=== PATIENT | male | born 1955 | race Caucasian/White ===

== ENCOUNTER 2017-02-24 00:24 | Observation (INO) ==
[2017-02-24] MEDS ORDERED: NITROGLYCERIN SL 0.4 MG TABLET SL STA (02:50)
[2017-02-24] MEDS ORDERED: ASPIRIN 325 MG TABLET PO STA (02:50)
[2017-02-24] MEDS ORDERED: ONDANSETRON 4 MG/2 ML VIAL IV STA (02:50)
[2017-02-24] MEDS ORDERED: MORPHINE 2 MG/1 ML SYRINGE IV STA (02:50)
--- NOTE | 2017-02-24 02:51 | Emergency Department Note ---
Marcelina Ashby Rolonda, am scribing for, and in the presence of, Jamilah Wade DO 02: 51. IMauro Debra, DO, personally performed the services described in this documentation, ascribed by Vonnie Hewitt in my presence, and it is both accurate and complete . Arrival - Arrival Chief Complaint: Chest Pain Stated Complaint: chest pain ED Nursing Triage Note: PATIENT C/O MIDSTERNAL CP PAIN THAT RADIATES TO LEFT SHOULDER, HEAVY IN NATURE, DENIES SOB OR N/V. HX PERICARDITIS Mode of Arrival: Wheelchair Limitations: No Limitations Source: Patient, Old Records Reviewed, RN Notes Reviewed - History of Present Illness HPI Narrative: Pt is a 61 y/o male who presents to the ED with c/o chest pain with an onset at 8pm. Pt denies any PMHx of Cardiovascular problems. Pt states that he was home watching tv when he began to feel "heaviness and pressure" in his chest. Pt states that the severity of the pain was worse but has declined to 4/10. He denies diaphoresis, N/V and is f/u by Dr. Villafuerte. No other complaint/pain in ED. Onset (ago): hour(s) Consistency: constant Severity: moderate Severity scale (1-10): 4 Quality: other (heaviness; pressure) Allergies/Adverse Reactions: Allergies Allergy/AdvReac Type Severity Reaction Status Date / Time No Known Allergies Allergy Verified 02/24/17 00:31 Home Medications: Home Medications Medication Instructions Recorded Confirmed Type No Known Home Medications [No 02/24/17 02/24/17 History Known Home Medications] Review of System - Review of System 12 point system: reviewed and no additional remarkable complaints except as stated - Review of System Constitutional: Absent: chills, fever, weakness Eyes: Absent: discharge, redness Head/Ears/Nose/Throat: Absent: earache, epistaxis Respiratory: Absent: cough Cardiovascular: Present: chest pain. Absent: palpitations, dyspnea on exertion Gastrointestinal: Absent: abdominal pain, nausea, vomiting, diarrhea Genitourinary male: Absent: urgency Musculoskeletal: Absent: arm pain, back pain, leg pain, neck pain Skin: Absent: rash Neurological: Absent: headache, weakness Medical,Surgical,& Family Hx - Social History Smoking Status: Never smoker Frequency of Alcohol Use: None Type of Drug Use: None Exam Vital Signs: Vital Signs Temperature 97.8 F 02/24/17 00:24 Pulse Rate 57 L 02/24/17 00:24 Respiratory Rate 20 02/24/17 00:24 Blood Pressure 151/87 02/24/17 00:24 O2 Sat by Pulse Oximetry 96 02/24/17 00:24 - General General appearance: alert, in no apparent distress, obese (mildly) - Head Head exam: Present: atraumatic, normocephalic - Eye Eye exam: Present: PERRL, EOMI - ENT ENT exam: Present: mucous membranes moist. Absent: mucous membranes dry - Neck Neck exam: Present: full ROM. Absent: tenderness - Chest Chest inspection: Present: symmetric chest wall rise. Absent: tenderness - Cardiovascular Cardiovascular exam: Present: normal rhythm, bradycardia (mildly) - Abdominal Exam Abdominal exam: Present: soft, normal bowel sounds. Absent: tenderness - Extremities Exam Extremities exam: Present: full ROM. Absent: tenderness - Back Exam Back exam: Present: full ROM. Absent: tenderness - Neurological Exam Neurological exam: Present: alert, oriented X3, CN II-XII intact - Psychiatric Psychiatric exam: Present: normal affect, normal mood - Skin Skin exam: Present: warm, dry, intact, normal color. Absent: rash Course Course Narrative: will admit to Dr Villafuerte. pt is chest pain free currently.. Results - Labs CBC & BMP: 02/24/17 03:03 02/24/17 03:03 Lab Results: I have reviewed the patients labs Labs: Laboratory Tests 02/24/17 03:03 WBC 7.0 RBC 4.70 Hgb 16.1 Hct 43.7 MCHC 36.8 H Plt Count 177 Laboratory Tests 02/24/17 03:03 Sodium 142 Potassium 3.9 Chloride 110 H Carbon Dioxide 24 BUN 22 H GFR Calculation 95 Calcium 8.4 L AST 20 Total Protein 6.3 L - EKG EKG results: interpreted by ERMD EKG shows: bradycardia - Diagnostic Findings Procedure: Chest x-ray: image reviewed by me (no acute process) Disposition Clinical Impression: Chest pain Case discussed with: patient Disposition: Still a Patient Condition: Stable Instructions: Chest Pain (ED) Time of Disposition: 04:21
[2017-02-24] MEDS ORDERED: ASPIRIN 325 MG TABLET ONE (02:57)
[2017-02-24] MEDS ORDERED: NITROGLYCERIN SL 0.4 MG TABLET SL ONE (02:57)
[2017-02-24] MEDS ORDERED: ONDANSETRON 4 MG/2 ML VIAL ONE (02:57)
[2017-02-24] MEDS ORDERED: MORPHINE 2 MG/1 ML SYRINGE ONE (03:09)
[2017-02-24 03:14] LABS: Basophils % 0.4 % (0.0-0.8); Eosinophils # 0.1 10*3/uL (0.0-0.87); Eosinophils % 1.3 % (0.00-10.9); Hematocrit 43.7 VOL% (42.0-52.0); Hemoglobin 16.1 GM/DL (14.0-18.0); Immature Granulocytes % 0.4 %; Immature Granulocytes Absolute 0.03 #; Lymphocytes # 1.8 10*3/uL (1.4-4.0); Lymphocytes % 25.1 % (21.2-54.2); Mean Corpuscular HGB Conc 36.8 GM/DL (32-36); Mean Corpuscular Hemoglobin 34 PG (27-34); Mean Platelet Volume 10.4 FL (9.6-12.0); Monocytes # 0.7 10*3/uL (0.11-0.8); Monocytes % 10.5 % (1.7-12.7); Neutrophils # 4.4 10*3/uL (1.4-7.4); Neutrophils % 62.3 % (38.7-73.9); Platelet Count 177 T/CUMM (130-400); Red Cell Distribution Width 12.5 % (9.3-17.3)
[2017-02-24 03:23] LABS: INR 1.1; PT Patient Result 11.3 SECS; Partial Thromboplastin Time 29.9 SECS (0-40)
[2017-02-24 03:32] LABS: Alanine Aminotransferase 27 U/L (16-61); Albumin 3.7 G/DL (3.4-5.0); Alkaline Phosphatase 73 U/L (45-117); Aspartate Amino Transferase 20 U/L (0-37); Blood Urea Nitrogen 22 MG/DL (7-18); Calcium 8.4 MG/DL (8.5-10.1); Glucose 120 MG/DL (74-106); Osmolality,Calculated 286.1 MOS/KG (273-304); Potassium 3.9 MMOL/L (3.5-5.1); Sodium 142 MMOL/L (136-145); Total Protein 6.3 G/DL (6.4-8.3); Troponin I Only < 0.015 NG/ML (0.00-0.045)
[2017-02-24] MEDS ORDERED: ACETAMINOPHEN 325 MG TABLET PO PRN (04:24)
[2017-02-24] MEDS ORDERED: MORPHINE 2 MG/1 ML SYRINGE IV PRN (04:24)
[2017-02-24] MEDS ORDERED: ONDANSETRON 4 MG/2 ML VIAL IV PRN (04:24)
[2017-02-24] MEDS ORDERED: SODIUM CHLORIDE 0.9% 1,000 ML IV SCH (04:30)
[2017-02-24] MEDS ORDERED: ENOXAPARIN 40 MG/0.4 ML SYRINGE SUBCUT SCH (04:30)
[2017-02-24] MEDS ORDERED: NITROGLYCERIN SL 0.4 MG TABLET SL PRN (06:49)
--- NOTE | 2017-02-24 06:58 | XRay Report ---
XR chest 1V portable Indication: Shortness of breath Comparison: None available Findings: The heart and mediastinum are normal in size and configuration. The pulmonary vascularity is normal in caliber. No lung infiltrates, effusions, pneumothorax or other abnormality is demonstrated. Impression: Normal chest x-ray PROCEDURE INTERPRETED AT [facility] Final Report Signed by: Dr. Wallace Grimes
--- NOTE | 2017-02-24 07:26 | Family Practice History&Phys ---
Assessment and Plan (1) Chest pain Status: Acute Assessment and plan: 02/24/2017: Cardiac isoenzymes are ordered. EKG would be repeated this morning and will ask cardiology to see him. He has seen Dr. Johnson in the past. He is presently pain-free. Current Visit: Yes History of Present Illness Chief complaint: Chest pain History of present illness: Mr. Cameron Ventura is a 61 year old male Patient 58-year-old white male presents emergency room complaining substernal chest pain. Patient states it began about 830 last night while he was at rest. Patient states pain was in the center of his chest and radiated to his right trapezius area. Patient states he had no associated shortness of breath, nausea or diaphoresis. He lied down in bed but the pain just got worse and he finally went to the emergency room and was given a nitroglycerin and his pain subsided promptly. He denies any dyspepsia or dysphasia. He has seen Dr. Johnson in the past and had a exercise treadmill study that revealed no evidence of ischemia. He has no personal history of heart disease but his father of an HI. His paternal uncle and grandfather also had heart disease. Patient states has not noticed any change in his exercise tolerance. Has not been getting unusually short of breath with exertion. He states he has been completely pain-free since admission. Admission EKG showed T-wave inversion laterally. Home Medications Medication Instructions Recorded Confirmed Type No Known Home Medications [No 02/24/17 02/24/17 History Known Home Medications] Allergies Allergy/AdvReac Type Severity Reaction Status Date / Time No Known Allergies Allergy Verified 02/24/17 00:31 - Constitutional Constitutional: Absent: chills, fatigue, fever(s), weakness, weight gain, weight loss - EENT Eyes: Absent: blurry vision, loss of vision Ears: Absent: decreased hearing, ear pain Nose, mouth and throat: Absent: dysphagia, nasal congestion, sinus pressure, sore throat - Cardiovascular Cardiovascular: Present: as per HPI, chest pain at rest. Absent: lightheadedness, orthopnea, palpitations, PND - Respiratory Respiratory: Absent: cough, dyspnea, wheezing - Gastrointestinal Gastrointestinal: Absent: abdominal pain, diarrhea, dysphagia, hematemesis, melena, nausea, odynophagia, vomiting - Genitourinary Genitourinary: Absent: dysuria, flank pain, hematuria, nocturia - Musculoskeletal Musculoskeletal: Absent: arthralgias, back pain - Neurological Neurological: Absent: confusion, focal weakness, numbness, paresthesias - Psychiatric Psychiatric: Absent: anxiety, confusion - Endocrine Endocrine: Absent: fatigue, polydipsia, polyphagia - Hematologic/Lymphatic Hematologic/Lymphatic: Absent: easy bleeding, easy bruising Medical,Surgical,& Family Hx - Social History Smoking Status: Never smoker Frequency of Alcohol Use: None Type of Drug Use: None Exam - Constitutional Vitals: Period Temp Pulse Resp BP Sys/[place] Pulse Ox Last 24 Hr 97.8 F-97.9 F 45-57 16-20 107-151/70-87 96-97 Results - Labs CBC & BMP: 02/24/17 03:03 02/24/17 03:03 Lab Results: I have reviewed the past 24 hour labs - EKG EKG shows: bradycardia (Sinus bradycardia with heart rate 54 bpm. Patient has prominent T-wave inversion and hyperacute T waves in lateral precordial leads.) - Diagnostic Findings Procedure: Chest x-ray: report reviewed by me (No abnormality seen.)
[2017-02-24 08:00] LABS: Troponin I Only < 0.015 NG/ML (0.00-0.045)
[2017-02-24] MEDS ORDERED: DOCUSATE SODIUM 100 MG CAPSULE PO SCH (09:00)
[2017-02-24] MEDS ORDERED: PANTOPRAZOLE 40 MG TABLET PO SCH (09:00)
--- NOTE | 2017-02-24 09:32 | EKG Report ---
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
--- NOTE | 2017-02-24 09:36 | EKG Report ---
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
--- NOTE | 2017-02-24 10:10 | Cardiology Consult Note ---
<Radha Rebolledo - Last Filed: 02/24/17 10:02> Assessment and Plan - Time spent with patient Time spent with patient: Greater than 30 minutes (1) Chest pain Status: Acute Assessment and plan: See plan of care listed below. Current Visit: Yes (2) History of IHSS Status: Chronic Assessment and plan: See plan of care listed below. Current Visit: Yes (3) Family history of coronary artery disease Status: Chronic Assessment and plan: See plan of care listed below. Current Visit: Yes (4) Obesity (BMI 30.0-34.9) Status: Acute Assessment and plan: See plan of care listed below. 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 Johnson in the remote past PCP: Dr. Indio Villafuerte Mr. Cameron Ventura is a 61 year old male without known history of coronary artery disease, has been seen by Dr. Johnson in the remote past. Patient has cardiac risk factors significant for obesity, advanced age and family history of coronary artery disease (father and grandfather). Patient reports a past medical history of pericarditis and IHSS. He reports that he has never undergone heart catheterization. He had cardiac stress test approximately [address] Johnson which did not reveal any reversible ischemia. Low risk study. He has not followed up with Dr. Johnson since that time. Patient presented to [facility] early this morning with complaints of chest pain. He reports that his chest began to hurt yesterday evening around 8 PM while watching TV. He describes his pain as a pressure located midsternally that radiates to the right shoulder and arm. Rates his pain a 6 out of 10. No associated symptoms. Denies associated shortness of breath, nausea, vomiting and diaphoresis. Lasted approximately 30 minutes and seemed to resolve on its own. Unable to identify any specific alleviating or aggravating factors. Did not seem to worsen with deep breathing, cough or certain positions. Reports that he does not have history of reflux. No association with meals. Unable to reproduce his chest pain with palpation. Around 11:30 PM, his chest pain returned and seem to progress. He reports that he took an aspirin at home which seemed to help his pain slightly. He became concerned and felt that he needed to be further evaluated in the emergency department. Upon arrival to the ER, he received nitroglycerin which he reports completely relieved his chest pain. He has been admitted under family medicine' s service and housed in the telemetry unit. Cardiology has been consulted to further evaluate his chest pain. Of note, patient reports that he remains extremely active. He just recently finished painting his entire house without experiencing any chest pain, heaviness or tightness. He denies any change in his exercise tolerance. Denies fever, chills, cough, nausea, vomiting, diarrhea, abdominal pain, dyspnea on exertion, easy fatigability, orthopnea, PND and lower extremity swelling. Patient was seen and examined on the telemetry unit. He is currently without complaints of chest pain, heaviness and tightness. Cardiac biomarkers negative 2. EKG does reveal T-wave inversion in lateral leads. Chest x-ray stable. BNP 43. Patient is now pain-free. Denies exertional component. Relieved with sublingual nitroglycerin. Troponin negative 2. EKG reveals T-wave inversion in the lateral leads. At this point, I will continue nitrates, add aspirin and continue to cycle cardiac biomarkers and EKGs. Unable to add beta blockade as his heart rate will not allow. I will check lipid panel. I will keep patient n.p.o. and further discuss with Dr. Johnson regarding further cardiac workup, invasive versus noninvasive. ASSESSMENT/PLAN 1. CHEST PAIN - Patient presented to emergency department with complaints of chest pain. No exertional component. Relieved with sublingual nitroglycerin. Troponin negative 2. EKG reveals T-wave inversion in the lateral leads. However, patient does have history of IHSS. Patient is now pain-free. At this point, I will continue nitrates add aspirin and continue to cycle cardiac biomarkers and EKGs. Unable to add beta blockade as his heart rate will not allow. I will check lipid panel. I will keep patient n.p.o. and further discuss with Dr. Johnson regarding further cardiac workup, invasive versus noninvasive. 2. FAMILY HISTORY OF CAD - Patient reports that his father had CAD as well as his grandfather. 3. OBESITY - Weight loss encouraged. 4. HISTORY OF IHSS - Most likely causing patient's T-wave inversion in lateral leads. Will order echocardiogram. Continue current plan of care. CC: Indio Villafuerte MD - Home Medications and Allergies Home Medications: Home Medications Medication Instructions Recorded Confirmed Type No Known Home Medications [No 02/24/17 02/24/17 History Known Home Medications] Allergies/Adverse Reactions: Allergies Allergy/AdvReac Type Severity Reaction Status Date / Time No Known Allergies Allergy Verified 02/24/17 00:31 - Constitutional Constitutional: Present: as per HPI. Absent: chills, excessive sweating, fatigue, fever(s), lethargy, malaise, weakness, weight gain, weight loss - Cardiovascular Cardiovascular: Present: as per HPI, chest pain at rest, radiating jaw, neck or arm pain. Absent: chest pain with activity, claudication, diaphoresis, dyspnea , dyspnea on exertion, edema, lightheadedness, orthopnea, palpitations, PND - Respiratory Respiratory: Absent: cough, dyspnea, hemoptysis, dyspnea on exertion, wheezing, snoring, pain on inspiration, change in phlegm color - Gastrointestinal Gastrointestinal: Present: as per HPI. Absent: abdominal pain, change in bowel habits, coffee ground emesis, constipation, cramping, diarrhea, dyspepsia, dysphagia, heartburn, hematemesis, hematochezia, loose stools, melena, nausea, vomiting - Neurological Neurological: Absent: abnormal gait, abnormal speech, behavioral changes, dizziness, frequent falls, numbness, paresthesias, syncope Medical,Surgical,& Family Hx - Medical History Cardio: History of: Cardiovascular Problems (IHSS and pericarditis) - Social History Smoking Status: Never smoker Frequency of Alcohol Use: None Type of Drug Use: None Marital Status: Single Lives With:: Alone Functional capacity: independent ambulation Physical Examination Vital Signs Temp Pulse Resp BP Pulse Ox 97.8 F 57 L 20 151/87 96 02/24/17 00:24 02/24/17 00:24 02/24/17 00:24 02/24/17 00:24 02/24/17 00:24 Exam: General: Appears well with no apparent distress. Pleasant and cooperative. Appears comfortable. HEENT: PERRL, normocephalic, atraumatic. Mucous membranes moist. No jaundice noted. Conjunctiva moist and clear, sclerae anicteric Neck: No JVD/HJR, no thyromegaly or lymphadenopathy noted. No carotid bruit appreciated Cardiac: Regular rate and rhythm. No murmur rub or gallop. Lungs: Clear to auscultation without accessory muscle use to assist the respiratory pattern. Not requiring oxygen. Abdomen: Soft, bowel sounds normoactive. Nontender and nondistended. No abdominal bruit or thrill noted. No masses noted. Extremities: No clubbing, cyanosis noted. No edema noted. Upper extremity pulses 2+. Lower extremity pulses 2+. Capillary refill less than 3 seconds. Skin: No unusual lesions or rashes. No skin breakdown appreciated. Neuro: Awake, alert and oriented 3. Moves all extremities well without hemiparesis or paralysis. No essential tremor is appreciated. Result/EKG - Labs CBC & BMP: 02/24/17 03:03 02/24/17 03:03 Lab Results: I have reviewed the past 24 hour labs Labs: Laboratory Results - last 24 hr 02/24/17 02/24/17 02/24/17 03:03 03:03 03:03 WBC 7.0 RBC 4.70 Hgb 16.1 Hct 43.7 MCV 93.0 MCH 34 MCHC 36.8 H RDW 12.5 Plt Count 177 MPV 10.4 Neut % (Auto) 62.3 Lymph % (Auto) 25.1 [place] % (Auto) 10.5 Eos % (Auto) 1.3 Baso % (Auto) 0.4 Neut # (Auto) 4.4 Lymph # (Auto) 1.8 [place] # (Auto) 0.7 Eos # (Auto) 0.1 Baso # (Auto) 0.0 Immature Gran % 0.4 Nucleated RBC % 0.0 Immature Gran # 0.03 Nucleated RBCs # 0.00 INR 1.1 PT Patient/Control Mix 11.3 Circ Anticoag PTT 29.9 Sodium 142 Potassium 3.9 Chloride 110 H Carbon Dioxide 24 Anion Gap 11.9 BUN 22 H Creatinine 1.00 GFR Calculation 95 BUN/Creatinine Ratio 22.00 H Glucose 120 H Calculated Osmolality 286.1 Calcium 8.4 L Total Bilirubin 0.70 AST 20 ALT 27 Alkaline Phosphatase 73 Total Creatine Kinase 84 CK-MB (CK-2) 1.1 Troponin I < 0.015 B-Natriuretic Peptide Total Protein 6.3 L Albumin 3.7 Globulin 2.6 Albumin/Globulin Ratio 1.4 02/24/17 02/24/17 03:03 07:18 WBC RBC Hgb Hct MCV MCH MCHC RDW Plt Count MPV Neut % (Auto) Lymph % (Auto) [place] % (Auto) Eos % (Auto) Baso % (Auto) Neut # (Auto) Lymph # (Auto) [place] # (Auto) Eos # (Auto) Baso # (Auto) Immature Gran % Nucleated RBC % Immature Gran # Nucleated RBCs # INR PT Patient/Control Mix Circ Anticoag PTT Sodium Potassium Chloride Carbon Dioxide Anion Gap BUN Creatinine GFR Calculation BUN/Creatinine Ratio Glucose Calculated Osmolality Calcium Total Bilirubin AST ALT Alkaline Phosphatase Total Creatine Kinase 72 CK-MB (CK-2) 1.2 Troponin I < 0.015 B-Natriuretic Peptide 43 Total Protein Albumin Globulin Albumin/Globulin Ratio - EKG EKG results: interpreted by me (Sinus rhythm with T-wave inversion in lateral leads.) Specialty Discharge - Follow Up or Referrals <Júnior Johnson - Last Filed: 02/24/17 11:33> History of Present Illness - Consult Narrative History of present illness: Cardiology addendum Patient examined chart reviewed discussed with nurse Radha Rebolledo RN. New-onset chest pain. EKG shows impressive anterolateral T-wave inversions. His father has IHSS and a defibrillator and at age 78 from COPD His brother is 60 and also has IHSS and hemochromatosis. The patient has hemochromatosis and has had approximately 20 phlebotomies in the last 3 years. Aunt at age 82 from hemochromatosis Normal nuclear stress test 5 years ago. Lifetime non-smoker. Normal cardiac exam. No murmur. Normal carotid upstroke. Good femoral and distal pulses. Good radial pulse. Impression Abnormal EKG with anterolateral T-wave inversions. No murmur on exam. 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 New-onset chest pain Hemochromatosis requiring phlebotomy every 2 months Lifetime non-smoker Father and brother have IHSS Patient takes no medications. Plan Echo Doppler Normal saline hydration Cardiac cath. Procedure risk and benefits discussed with patient and his mother. All questions answered. He agrees to proceed as outlined. CC: Indio Villafuerte MD Physical Examination Vital Signs Temp Pulse Resp BP Pulse Ox 97.8 F 57 L 20 151/87 96 02/24/17 00:24 02/24/17 00:24 02/24/17 00:24 02/24/17 00:24 02/24/17 00:24 Result/EKG - Labs CBC & BMP: 02/24/17 03:03 02/24/17 03:03 Labs: Laboratory Results - last 24 hr 02/24/17 02/24/17 02/24/17 03:03 03:03 03:03 WBC 7.0 RBC 4.70 Hgb 16.1 Hct 43.7 MCV 93.0 MCH 34 MCHC 36.8 H RDW 12.5 Plt Count 177 MPV 10.4 Neut % (Auto) 62.3 Lymph % (Auto) 25.1 [place] % (Auto) 10.5 Eos % (Auto) 1.3 Baso % (Auto) 0.4 Neut # (Auto) 4.4 Lymph # (Auto) 1.8 [place] # (Auto) 0.7 Eos # (Auto) 0.1 Baso # (Auto) 0.0 Immature Gran % 0.4 Nucleated RBC % 0.0 Immature Gran # 0.03 Nucleated RBCs # 0.00 INR 1.1 PT Patient/Control Mix 11.3 Circ Anticoag PTT 29.9 Sodium 142 Potassium 3.9 Chloride 110 H Carbon Dioxide 24 Anion Gap 11.9 BUN 22 H Creatinine 1.00 GFR Calculation 95 BUN/Creatinine Ratio 22.00 H Glucose 120 H Calculated Osmolality 286.1 Calcium 8.4 L Total Bilirubin 0.70 AST 20 ALT 27 Alkaline Phosphatase 73 Total Creatine Kinase 84 CK-MB (CK-2) 1.1 Troponin I < 0.015 B-Natriuretic Peptide Total Protein 6.3 L Albumin 3.7 Globulin 2.6 Albumin/Globulin Ratio 1.4 Triglycerides Cholesterol LDL Cholesterol VLDL Cholesterol HDL Cholesterol Heart Disease Risk Ratio 02/24/17 02/24/17 02/24/17 03:03 07:16 07:18 WBC RBC Hgb Hct MCV MCH MCHC RDW Plt Count MPV Neut % (Auto) Lymph % (Auto) [place] % (Auto) Eos % (Auto) Baso % (Auto) Neut # (Auto) Lymph # (Auto) [place] # (Auto) Eos # (Auto) Baso # (Auto) Immature Gran % Nucleated RBC % Immature Gran # Nucleated RBCs # INR PT Patient/Control Mix Circ Anticoag PTT Sodium Potassium Chloride Carbon Dioxide Anion Gap BUN Creatinine GFR Calculation BUN/Creatinine Ratio Glucose Calculated Osmolality Calcium Total Bilirubin AST ALT Alkaline Phosphatase Total Creatine Kinase 72 CK-MB (CK-2) 1.2 Troponin I < 0.015 B-Natriuretic Peptide 43 Total Protein Albumin Globulin Albumin/Globulin Ratio Triglycerides 234 H Cholesterol 150 LDL Cholesterol 96.0 VLDL Cholesterol 46.8 HDL Cholesterol 28 L Heart Disease Risk Ratio 5.36
[2017-02-24 10:55] LABS: Risk Ratio 5.36; VLDL CHOLESTEROL 46.8 MG/DL
[2017-02-24] MEDS ORDERED: POTASSIUM CHLORIDE RIDER 10 MEQ in PREMIX 1 EACH IV PRN (12:03)
[2017-02-24] MEDS ORDERED: DIAZEPAM 5 MG TABLET PO ONE (12:03)
[2017-02-24] MEDS ORDERED: diphenhydrAMINE CAP 25 MG CAPSULE PO ONE (12:03)
[2017-02-24] MEDS ORDERED: MAGNESIUM SULF RIDER 2 GM in PREMIX 1 EACH IV PRN (12:03)
--- NOTE | 2017-02-24 13:24 | History and Physical Update ---
Sedation H&P Update - History and Physical H&P was reviewed, the patient examined and there: are no changes in the patients condition since last H&P was completed. - Dictation Physical: refer to scanned H&P - Physical Exam Mental Status: alert and oriented Heart: regular rate and rhythm Lung: clear to auscultation Abdomen: within normal limits Vitals: within normal limits - Sedation Plan for Sedation: moderate Patient Consent: Procedure disscussed with patient and patinet has consented., Risks and benefits were discussed with patient,including infection,, bleeding, injury to surrounding structures, seizure, temporary nerve, Patient understands and accepts potential risks/benefits and agrees to, proceed. ASA Class: II Airway Assessment: Class III: Soft palate, base of uvula visible
[2017-02-24] MEDS ORDERED: LIDOCAINE 1% 20 ML VIAL ONE (14:00)
[2017-02-24] MEDS ORDERED: HEPARIN/NACL 0.9% 2 UNITS/ML 1,000 ML IV ONE (14:00)
[2017-02-24] MEDS ORDERED: VERAPAMIL 5 MG/2 ML VIAL ONE (14:01)
[2017-02-24] MEDS ORDERED: NITROGLYCERIN DRIP 50 MG/250 ML BOTTLE IV ONE (14:01)
[2017-02-24] MEDS ORDERED: MIDAZOLAM 2 MG/2 ML VIAL ONE (14:20)
[2017-02-24] MEDS ORDERED: fentaNYL 100 MCG/2 ML VIAL ONE (14:21)
[2017-02-24] MEDS ORDERED: ENOXAPARIN 60 MG/0.6 ML SYRINGE ONE (14:28)
--- NOTE | 2017-02-24 14:49 | Cardiac Catheterization ---
Date of Procedure:: 02/24/17 Pre-op Diagnosis: Abnormal EKG and typical chest discomfort relieved with nitroglycerin Post-op diagnosis: other (No high grade epicardial stenosis. Distal LAD intramyocardial bridging (small vessel)) Procedure: Procedures: 1. Selective left and right coronary angiography 2. Left heart catheterization with resting hemodynamics After signed an informed consent was obtained, the patient was prepped and draped in standard fashion for right radial access. Time out was recorded. 0.5 mL of 1% lidocaine were infiltrated in the skin and subcutaneous tissue overlying the right radial artery and Seldinger technique was utilized with a Angiocath to obtain access to the right radial artery. A [employer] glide wire was then advanced into the midforearm under fluoroscopic guidance. The Angiocath was removed and a 6 Ecuadorean [employer] glide sheath was placed over the Glidewire. The sheath was aspirated and flushed and then 5 mg of verapamil and 200 g of nitroglycerin were given through the sheath. At this time an 035 J-wire was used to guide a Rolla 5 Ecuadorean catheter (6 Ecuadorean not available) into the central aorta across the aortic valve and into the ventricle. Pressure measurements and pullback measurements were obtained. The Rolla catheter was then used to engage the left main coronary artery and multiple orthogonal views of the left system were obtained. The catheter then was torqued into the right coronary artery and orthogonal views of the right system were obtained. The catheter was then exchanged over the wire. The sheath was aspirated and flushed. The longwall headgate operator reviewed the films. And a TR band was placed over the glide sheath and used for hemostasis. Total contrast exposure 70 cc of omnipaque Total x-ray exposure: 5.3 min fluoroscopy time and 347 mGy air Kerma Findings: 1. EF not assessed. Recent transthoracic echo performed please see that report for details. 2. Hemodynamics LV: 110/2 EDP:7 Ao:109/60 3. Left main: Large, angiographically normal 4: Left anterior descending artery: Is a moderate-sized vessel and proximal and mid segments. In the mid segments it becomes somewhat small there appears to be milking of this vessel it is consistent with a intramyocardial bridge and also appears to have a slightly downward course. This also may be due to underfilling due to inability to engage the left main coronary artery completely with the 5 Ecuadorean TIG catheter. There is clearly no high-grade epicardial stenosis 5: Left circumflex artery: The nondominant artery is angiographically normal 6: Right coronary artery: Is a large dominant vessel. It is angiographically normal Assessment: 1. Normal resting left ventricular hemodynamics with preserved end-diastolic pressure 2. Area of probable intramyocardial bridging in the distal left anterior descending artery as described above Plan: 1. Therapeutic lifestyle changes. 2. Beta-nadine therapy 3. Follow-up with primary chemistry manager after discharge 4. I discussed with Dr. Inido Villafuerte the patient's primary care provider. Implants: none Anesthesia: moderate conscious sedation Surgeon / Physician: Gabby De Leon Rotary Planer Set Up Operator: none Estimated blood loss: none Specimens: none sent Condition: stable Disposition: floor - Medications / Follow-up
[2017-02-24] MEDS ORDERED: METOPROLOL SUCCINATE XL 25 MG TABLET PO SCH (15:00)
--- NOTE | 2017-02-24 15:00 | ECHO Report ---
Anupam Barnes Exam Date: 02/24/2017 12:16 Referring Physician: Technologist: Gala Mccall Age: 61 Ht (in): 69 Wt (lb): 206 Gender: M Exam Location: [facility] Echo Indications: Chest pain, Hx. IHSS, CAD BP: 140 / 80 HR: 45 Rhythm: Sinus Technical Quality: good IMPRESSIONS Normal left ventricular cavity size. There is no regional wall motion abnormality. There is grade 1 diastolic dysfunction. The tricuspid regurgitant velocity suggest a RVSP of 15 mmHg plus the right atrial pressure. MEASUREMENTS (Male / Female) Normal Values 2D ECHO LV Diastolic Diameter PLAX 3.5 cm 4.2 - 5.9 / 3.9 - 5.3 cm LV Systolic Diameter PLAX 1.8 cm LV Fractional Shortening PLAX 49.3 % IVS Diastolic Thickness 1.6 cm 0.6 - 1.0 / 0.6 - 0.9 cm LVPW Diastolic Thickness 1.3 cm 0.6 - 1.0 / 0.6 - 0.9 cm Aortic Root Diameter 2.7 cm LA Systolic Diameter LX 4.1 cm 3.0 - 4.0 / 2.7 - 3.8 cm DOPPLER TR Peak Velocity 193.0 cm/s TR Peak Gradient 14.9 mmHg FINDINGS Left Ventricle Normal left ventricular cavity size. Mild concentric left ventricular hypertrophy. Left ventricular ejection fraction is estimated at 60- 65%. The septal wall is only minimally more hypertrophied than the remainder the ventricular myocardium as above. I do not think this represents hypertrophic cardiomyopathy. There is no regional wall motion abnormality. There is grade 1 diastolic dysfunction Right Ventricle Normal right ventricular size. Right Atrium Normal right atrial size. Left Atrium Normal left atrial size. Mitral Valve Morphologically normal mitral valve. Trace mitral valve regurgitation. Aortic Valve The aortic valve is trileaflet, delicate and has normal motion. Tricuspid Valve Morphologically normal tricuspid valve. Trace tricuspid valve regurgitation. The tricuspid regurgitant velocity suggest a RVSP of 15 mmHg plus the right atrial pressure. Pulmonic Valve Morphologically normal pulmonic valve. Trace pulmonary valve regurgitation. Pericardium No pericardial effusion. Aorta Normal size aortic root and proximal ascending aorta. Gabby De Leon (Electronically Signed) Final Date: 24 February 2017 14:58
--- NOTE | 2017-02-24 15:30 | Discharge Summary ---
Hospital Course - Hospital Course Hospital Course: Patient is a 61-year-old white male presented emergency room day of admission with substernal chest pain and abnormal EKG. Patient had negative cardiac isoenzymes. Patient does have positive family history of heart disease with his brother having a heart attack around 60 years of age. Patient was noted to have T-wave inversions in the lateral precordial leads suspicious for ischemia. He was seen in consultation with Dr. Johnson and Dr. Gabby De Leon and taken to the Political Science Instructor on 02/24/2017. Patient's coronary arteries were open with no evidence of stenotic lesion being present. It is my suspicion that his pain may be GI in origin and told him I thought he may be having some esophageal spasm. He will be treated appropriately. I have asked him return the office in 4 weeks for reevaluation. Diagnosis - Discharge Diagnosis (1) Chest pain Status: Acute Specialty Discharge - Follow Up or Referrals Discharge Plan - Discharge Data Disposition: Disch To Home/Self Care Condition at Discharge: Stable Discharge Diet: advance to your usual diet Activity: resume usual activities as tolerated Hygiene: no restrictions Weight Bearing at Discharge: full weight bearing Driving: no restrictions Contact your physician if you experience:: fever over 101 - Discharge Medications New Pantoprazole Tab [Protonix Tab] 40 mg PO DAILY #30 tablet - Follow Up or Referral Follow Up: Indio Villafuerte MD [Primary Care Provider] - 1 Month - Forms/Instructions Instructions: Chest Pain (ED) Exam - Constitutional Vitals: Period Temp Pulse Resp BP Sys/[place]on[place] Pulse Ox Last 24 Hr 97.4 F-97.9 F 45-57 16-20 107-151/70-87 96-98 Exam: Patient well-developed white male no acute distress. Is able answer questions appropriately. He is sedated from his procedure. He denies any further pain. Cardiovascular heart rates regular without murmurs or gallops Respiratory: Lungs are clear Abdomen: Abdomen is soft and nontender to palpation. Discharge Results Procedures and tests throughout hospitalization: Pending Orders 02/24/17 13:48 CL heart Routine 02/24/17 15:00 Troponin,CKMB & Ck Total Routine 02/25/17 04:00 BMP w/ Mg [Basic Metabolic Panel w/Mg] IN AM CBC [Comp Blood Count Auto Diff] IN AM 02/26/17 04:00 BMP w/ Mg [Basic Metabolic Panel w/Mg] IN AM CBC [Comp Blood Count Auto Diff] IN AM 02/27/17 04:00 BMP w/ Mg [Basic Metabolic Panel w/Mg] IN AM CBC [Comp Blood Count Auto Diff] IN AM 02/28/17 04:00 BMP w/ Mg [Basic Metabolic Panel w/Mg] IN AM CBC [Comp Blood Count Auto Diff] IN AM Labs on day of discharge: Labs from last 24 hours 02/24/17 02/24/17 02/24/17 07:18 07:16 03:03 WBC RBC Hgb Hct MCV MCH MCHC RDW Plt Count MPV Neut % (Auto) Lymph % (Auto) Mcnairy % (Auto) Eos % (Auto) Baso % (Auto) Neut # (Auto) Lymph # (Auto) Mcnairy # (Auto) Eos # (Auto) Baso # (Auto) Immature Gran % Nucleated RBC % Immature Gran # Nucleated RBCs # INR PT Patient/Control Mix Circ Anticoag PTT Sodium Potassium Chloride Carbon Dioxide Anion Gap BUN Creatinine GFR Calculation BUN/Creatinine Ratio Glucose Calculated Osmolality Calcium Total Bilirubin AST ALT Alkaline Phosphatase Total Creatine Kinase 72 CK-MB (CK-2) 1.2 Troponin I < 0.015 B-Natriuretic Peptide 43 Total Protein Albumin Globulin Albumin/Globulin Ratio Triglycerides 234 H Cholesterol 150 LDL Cholesterol 96.0 VLDL Cholesterol 46.8 HDL Cholesterol 28 L Heart Disease Risk Ratio 5.36 02/24/17 02/24/17 02/24/17 03:03 03:03 03:03 WBC 7.0 RBC 4.70 Hgb 16.1 Hct 43.7 MCV 93.0 MCH 34 MCHC 36.8 H RDW 12.5 Plt Count 177 MPV 10.4 Neut % (Auto) 62.3 Lymph % (Auto) 25.1 Mcnairy % (Auto) 10.5 Eos % (Auto) 1.3 Baso % (Auto) 0.4 Neut # (Auto) 4.4 Lymph # (Auto) 1.8 Mcnairy # (Auto) 0.7 Eos # (Auto) 0.1 Baso # (Auto) 0.0 Immature Gran % 0.4 Nucleated RBC % 0.0 Immature Gran # 0.03 Nucleated RBCs # 0.00 INR 1.1 PT Patient/Control Mix 11.3 Circ Anticoag PTT 29.9 Sodium 142 Potassium 3.9 Chloride 110 H Carbon Dioxide 24 Anion Gap 11.9 BUN 22 H Creatinine 1.00 GFR Calculation 95 BUN/Creatinine Ratio 22.00 H Glucose 120 H Calculated Osmolality 286.1 Calcium 8.4 L Total Bilirubin 0.70 AST 20 ALT 27 Alkaline Phosphatase 73 Total Creatine Kinase 84 CK-MB (CK-2) 1.1 Troponin I < 0.015 B-Natriuretic Peptide Total Protein 6.3 L Albumin 3.7 Globulin 2.6 Albumin/Globulin Ratio 1.4 Triglycerides Cholesterol LDL Cholesterol VLDL Cholesterol HDL Cholesterol Heart Disease Risk Ratio DS: Provider Date of admission: 02/24/17 04:24 Primary care physician: Indio Villafuerte MD Attending physician on admission: Indio Villafuerte MD Consults: 02/24/17 04:24 Consult to Case Mgmt/Social Srvs [CONS] Routine Reason for Case Mgmt/Social Srvs: Discharge Planning 02/24/17 05:57 Consult to Pastoral Services [CONS] Routine Comment: Pastoral Screen: Declines Visit Pastoral Screen Source of Request: Patient 02/24/17 06:48 Consult to Physician [CONS] Routine Comment: Consulting Provider: Cardiology - [facility] Discharging clinician: Indio Villafuerte MD Expected date of discharge: 02/24/17
[2017-02-24 16:42] LABS: Troponin I Only < 0.015 NG/ML (0.00-0.045)
[2017-02-24 18:33] VITALS: BP 123/76
[2017-02-24] MEDS ORDERED: ATORVASTATIN 20 MG TABLET PO SCH (21:00)
[2017-02-25] MEDS ORDERED: ASPIRIN EC 81 MG TABLET PO SCH (09:00)
== END 2017-02-24 18:50 | disposition home or self-care (01) ==
LOC: N.ED 00:24 → N.EDINP 00:24 → N.TELEN 04:58
PROVIDERS: ADMIT Family Medicine; ATTEND Family Medicine
PROC: CLCCHCL (ICD-10-PCS; 2017-02-24 14:15)